=== PATIENT | female | born 2000 | race Caucasian/White ===

== ENCOUNTER 2021-11-25 09:47 | Emergency (ER) | payer BC, SELFPAY ==
--- NOTE | ~2021-11-25 | US_ITS ---
US pelvic complete w TV DATE: 11/25/2021 12:12 INDICATION: Low abdominal pain TECHNIQUE: Real-time imaging via transabdominal and transvaginal approaches COMPARISON: 11/25/2021 CT abdomen pelvis FINDINGS: The uterus measures 7.5 cm height, 3.7 cm AP dimension. Central endometrial echo complex me asures up to 8 mm AP dimension. Right ovary measures 3.2 x 1.8 x 3.2 cm, with small follicles. There is vascular flow to the right ov sabino. There is an approximately 5 x 7.5 mm complex largely cystic mass of the left ovary there is vascular flow to the left ovary. IMPRESSION: Approximately 5 x 7.5 cm complex largely cystic mass of the left ovary; no torsion is marco a dent Reviewed, dictated and finalized at [facility]. Reviewed, dictated and finalized at [facility]. IMPRESSION: Approximately 5 x 7.5 cm complex largely cystic mass of the left ov sabino; no torsion is evident
--- NOTE | ~2021-11-25 | CT_ITS ---
EXAMINATION: CT abdomen pelvis wo con DATE: 11/25/2021 11:04 INDICATION: Lower abdominal pain TECHNIQUE: Computed tomography (CT) of the abdomen and pelvis was performed without intravenous contr ast. Automated exposure control and iterative reconstruction technique were employed. Exam dose: 185 .82 mGy-cm total exam DLP. COMPARISON: None. FINDINGS: The lung bases are clear. Normal heart size. No pericardial or pleural effusion. The gallbladder is not visualized, presumably surgically resected; recommend clinical correlation. No hepatic, splenic, pancreatic, and adrenal or renal space-occupying mass lesions is evident on this limited noncontrast examination. No bile duct or pancreatic duct dilatation. No urinary tract calculus or hydroureteronephrosis is detected. Normal caliber of the abdominal aorta. No intraperitoneal or retroperitoneal or pelvic lymphadenopath y is noted. At least 6 cm left adnexal cystic lesion is noted. Smaller right adnexal cysts. Consider pelvic ultra sound for further evaluation. Mild free fluid in the posterior cul-de-sac. No bowel obstruction is detected. The appendix is not definitely localized. Included skeletal structures are unremarkable. IMPRESSION: Bilateral ovarian cysts are suggested, measuring up to approximately 6 cm the left. Cons ider pelvic ultrasound correlation Mild free fluid in the posterior cul-de-sac The gallbladder and appendix are not visualized Reviewed, dictated and finalized at [facility]. Reviewed, dictated and finalized at [facility]. IMPRESSION: Bilateral ovarian cysts are suggested, measuring up to approximate ly 6 cm the left. Consider pelvic ultrasound correlation Mild free fluid in the posterior cul-de-sac The gallbladder and appendix are not visualized
[2021-11-25 09:50] VITALS: BP 120/66; PULSE 84; RESP 18; TEMP 36.9; O2SAT 100
[2021-11-25 10:00] LABS: Basophils Percent Auto 0.5 % (0.2-1.2); Eosinophils Percent Auto 0.5 % (0-4.4); Hematocrit 42.8 % (37.0-47.0); Immature Granulocyte Absolute 0.02 K/mm3 (0.00-0.031); Immature Granulocyte Percent A 0.3 % (0-0.5); Lymphocytes Absolute Auto 2.01 K/mm3 (0.9-3.2); Lymphocytes Percent Auto 26.8 % (18.3-44.2); Mean Corpuscular HGB Conc 32.7 g/dl (32-36); Mean Corpuscular Hemoglobin 29.7 pg (26-34); Mean Corpuscular Volume 90.9 fl (80-100); Monocytes Absolute Auto 0.4 K/mm3 (0.1-0.6); Monocytes Percent Auto 5.5 % (2.6-8.5); Neutrophils Percent Auto 66.4 % (45.5-73.1); Platelet Count Result 236 k/mm3 (150-375); Red Blood Count 4.71 M/mm3 (4.2-5.4); Red Cell Distribution Width 12.3 % (11.5-14.5); White Blood Count 7.5 K/mm3 (4.5-10.0)
[2021-11-25 10:11] LABS: Alanine Aminotransferase 11 U/L (6-35); Albumin Level 4.7 g/dL (3.5-5.1); Alkaline Phosphatase 69 U/L (38-126); Anion Gap 6 mmol/L (8-16); Aspartate Amino Transferase 18 U/L (14-36); Bilirubin,Total 0.4 mg/dL (0.2-1.3); Blood Urea Nitrogen 8 mg/dL (7-17); Calcium 8.4 mg/dL (8.4-10.2); Carbon Dioxide 26 mmol/L (22-30); Chloride 109 mmol/L (98-107); Estimated CRCL calculation 100 ml/min; Estimated Glomerular Filt Rate > 60; Glucose 97 mg/dL (65-110); Lipase 30 U/L (23-300); Sodium 141 mmol/L (137-145)
[2021-11-25 10:44] LABS: Appearance Urine Clear (Clear); Bilirubin Urine Negative (Negative); Blood Urine 2+ (Negative); Color Urine Yellow (Yellow); Glucose Urine UA Negative (Negative); Ketones Urine Negative (Negative); Leukocyte Esterase Ur Negative LEU/UL (Negative); Nitrate Urine Negative (Negative); Protein Urine Trace mg/dL (Negative); Urobilinogen Urine 0.2 mg/dL (<2.0); pH Urine 7.5 (5.0-9.0)
--- NOTE | 2021-11-25 10:48 | ED.ABDPAIN ---
HPI - Abdominal Pain General Chief Complaint: Abdominal Pain Stated Complaint: abd pain Time Seen by Provider: 11/25/21 10:33 History of Present Illness HPI narrative: pt says lower abdominal pain like her adenomyosis but just more severe today with some n/v no d/urine chagnes/truama/preg h/o ablation, gb, appy in past says gets toradol injections last 1month ago from her doc in [place] for this. no other new issues no trauma/d/bad food Related Data Allergies Allergy/AdvReac Type Severity Reaction Status Date / Time codeine Allergy Hives Verified 11/25/21 10:48 folic acid Allergy Anaphylaxis Verified 11/25/21 10:49 Review of Systems Constitutional: Comments: CONSTITUTIONAL: Denies fever, chills, or sweats. EYES: Denies visual changes, redness, or discharge. ENT: Denies rhinorrhea, congestion, sore throat, or otalgia. CARDIOVASCULAR: Denies chest pain, palpitations, or edema. RESPIRATORY: Denies cough or dyspnea. GASTROINTESTINAL: hasabdominal pain, nausea, vomiting, no diarrhea. GENITOURINARY: Denies dysuria or hematuria. SKIN: Denies rash or itching. MUSCULOSKELETAL: Denies back pain, joint pain, or myalgia. NEUROLOGIC: Denies headache, numbness, or weakness. PSYCHIATRIC: Denies anxiety or depression. Exam Const: Other: APPEARANCE: Well appearing, no pain in distress, well-nourished. Head normocephalic atraumtaic. EYES: PERRLA/EOMI, conjunctivae very clear. NOSE: Normal no drainage EARS:TMS clear Ritika Fuller, with good light reflex. THROAT: Pharynx clear, no exudate. NECK: Supple. No adenopathy, no masses. RESPIRATORY: Airway patent, repsirations nonlabored. Clear to auscultation bilaterally, no rales, rhonchi, wheezing. CARDIOVASCULAR: Regular rate and rhythm without murmurs rubs or gallops. ABDOMINAL: Soft, nondistended, no hepatosplenomegally has difuse lower abd pain MUSCULOSKELETAl: Moves all extremities. Strenght/ROM intact, No edema, No calf tenderness. NEURO: Alert. Cranial nerves II through XII intact. Good gait. Good coordination SKIN:: Warm, dry. Normal Color PSYCHIATRIC: Normal affect/mood, normal interaction with parents. Course Course Emergency Course: updated pt at 1145 good with plan for US and home if good flow to ovaries with cyst today, pt says long h/o this Vital Signs Vital signs: Vital Signs Temperature 36.9 C 11/25/21 09:50 Pulse Rate 84 11/25/21 09:50 Respiratory Rate 18 11/25/21 09:50 Blood Pressure 120/66 11/25/21 09:50 Pulse Oximetry 100 11/25/21 09:50 Oxygen Delivery Room Air 11/25/21 09:50 Temperature 36.9 C 11/25/21 09:50 Pulse Rate 84 11/25/21 09:50 Respiratory Rate 18 11/25/21 09:50 Blood Pressure 120/66 11/25/21 09:50 Pulse Oximetry 100 11/25/21 09:50 Oxygen Delivery Room Air 11/25/21 09:50 MDM - Abdominal Pain Lab Data Result diagrams: 11/25/21 09:55 11/25/21 09:55 Labs: Lab Results 11/25/21 11/25/21 11/25/21 Range/Units 09:55 09:55 10:24 WBC 7.5 (4.5-10.0) K/mm3 RBC 4.71 (4.2-5.4) M/mm3 Hgb 14.0 (12.0-15.0) g/dL Hct 42.8 (37.0-47.0) % MCV 90.9 (80-100) fl MCH 29.7 (26-34) pg MCHC 32.7 (32-36) g/dl RDW 12.3 (11.5-14.5) % Plt Count 236 (150-375) k/mm3 MPV 10.0 (7.4-10.4) fl Immature Gran % (Auto) 0.3 (0-0.5) % Neut % (Auto) 66.4 (45.5-73.1) % Lymph % (Auto) 26.8 (18.3-44.2) % [place] % (Auto) 5.5 (2.6-8.5) % Eos % (Auto) 0.5 (0-4.4) % Baso % (Auto) 0.5 (0.2-1.2) % Lymph # (Auto) 2.01 (0.9-3.2) K/mm3 [place] # (Auto) 0.4 (0.1-0.6) K/mm3 Eos # (Auto) 0.0 (0-0.3) K/mm3 Baso # (Auto) 0.0 (0.0-0.1) K/mm3 Abs Immat Gran (auto) 0.02 (0.00-0.031) K/mm3 Absolute Neuts (auto) 5.0 (1.3-6.7) K/mm3 Absolute Nucleated RBC 0.0 (0.0-0.012) K/mm3 Nucleated RBC % 0.0 (0.0-0.2) % Sodium 141 (137-145) mmol/L Potassium 4.0 (3.4-5.0) mmol/L Chloride 109 H (98-107) mmol/L Carbon
[2021-11-25 10:57] LABS: Add Urine Microscopic? YES; Bacteria Urine Trace /hpf; Mucus Urine Few /lpf; Squamous Epithelial Cell Urine Moderate /hpf (Few)
--- NOTE | 2021-11-25 11:03 | PC.NURSE ---
Pt to CT scan via stretcher at this time.
[2021-11-25] MEDS: KETOROLAC (*BKC) 60 MG/2 ML VIAL IM (11:09)
== END 2021-11-25 13:09 | disposition home or self-care (01) ==
PROVIDERS: Emergency Provider Emergency Medicine
DX: N83.202 Unspecified ovarian cyst, left side (principal)
CPT/HCPCS: 36415; 74176; 76830; 76856; 80053; 81001; 81025; 83690; 85025; 87086; 96372; 99284; J1885